=== PATIENT | male | born 1950 | race Caucasian/White ===

== ENCOUNTER 2020-01-27 05:34 | Day surgery (SDC) | payer MEDICARE ==
[2020-01-27] MEDS ORDERED: LACTATED RINGERS 1,000 ML ONE (06:39)
[2020-01-27] MEDS ORDERED: PROPOFOL 200 MG/20 ML VIAL IV ONE (07:00)
[2020-01-27] MEDS ORDERED: LIDOCAINE 1% 10 ML VIAL INJ ONE (07:00)
--- NOTE | 2020-01-27 10:00 | OP ---
DATE OF PROCEDURE: 01/27/20 PREOPERATIVE DIAGNOSIS: 1. 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 POSTOPERATIVE DIAGNOSIS: 1. Additional polyps at the splenic flexure and remaining polyps as described. PROCEDURE: 1. Colonoscopy with polypectomies. SURGEON: Shashi Mandel MD ANESTHESIA: General. FINDINGS: At least 16 polyps were removed in 8 different containers. The area near the splenic flexure showed advancement of the adenomas previously removed with a small amount of flat residuals with serrated adenoma. We are here for close followup and the area has advanced significantly. Transit Clerk biopsies were taken, but unlikely amenable to endoscopic removal. It was tattooed. COMPLICATIONS: None. ESTIMATED BLOOD LOSS: Minimal. PLAN: Discharge. Followup after path. INDICATION: As stated. PROCEDURE: General anesthesia was induced in the lateral position. Digital rectal exam was normal. The colonoscope was inserted. A small, hyperplastic appearing polyp was noted in the rectum, but we proceeded and got to the cecum as identified by the ileocecal valve. I cannot definitely see the appendiceal orifice, but we were obviously in the cecum with a blind end. Upon withdrawal, there were polyps noted. One was at the distal ascending colon and others marked near the splenic flexure. Colon biopsied at 30 cm, additional at 25 cm. None of them were particularly large, a few were 3 to 3.5 mm, but the previous tattoo site, the proximal tattoo site showed no evidence of any polyp or residual. The splenic flexure showed advancement of the polypoid tissue. Before, it was serrated adenoma and it continues with a similar appearance. Multiple litigation claim representative biopsies were taken, but it involves almost half the circumference in an intermittent carpeted fashion. Upon withdrawal in the mid rectum, there are multiple hyperplastic appearing polyps of which at least 10 were removed. The patient tolerated the procedure, was awakened and taken to Recovery. We will discuss our options including surgery, continued excision, surveillance and even possible referral if it is felt these can be removed entirely, but I do not feel that they can be removed completely endoscopically at that area. #[id number] cc: DO AVERY Soto
[2020-01-27 10:29] VITALS: BP 160/79; TEMP 97; O2SAT 97
== END 2020-01-27 10:15 | disposition home or self-care (01) ==
LOC: AMB 05:34
PROVIDERS: ATTEND Surgery
DX: Z09 Encounter for follow-up examination after completed treatment for conditions other than malignant neoplasm (principal); K63.5 Polyp of colon; D12.2 Benign neoplasm of ascending colon; D12.3 Benign neoplasm of transverse colon; K62.1 Rectal polyp; I10 Essential (primary) hypertension; E78.00 Pure hypercholesterolemia, unspecified; G50.0 Trigeminal neuralgia; G60.9 Hereditary and idiopathic neuropathy, unspecified; Z86.010 Personal history of colon polyps; Z87.19 Personal history of other diseases of the digestive system; Z79.82 Long term (current) use of aspirin; Z79.899 Other long term (current) drug therapy
CPT/HCPCS: 00811; 36416; 45380; 82948; 88305; J3490; J7120